=== PATIENT | male | born 1980 | race African-American/Black ===

== ENCOUNTER 2021-07-02 10:26 | Emergency (ER) | payer SELFPAY ==
[2021-07-02] MEDS ORDERED: Azithromycin 250 MG Tab PO ONE (12:04)
[2021-07-02] MEDS ORDERED: cefTRIAXone 250 MG Vial IM ONE (12:04)
[2021-07-02] MEDS ORDERED: Ciprofloxacin 500 MG Tab PO ONE (12:04)
[2021-07-02] MEDS ORDERED: Ondansetron 4 MG Tab.DIS PO ONE (12:18)
[2021-07-05 06:12] LABS: CHLAMYDIA TRACHOMATIS, NAA Positive (Negative); NEISSERIA GONORRHOEAE, NAA Negative (Negative)
== END 2021-07-02 12:50 | disposition home or self-care (01) ==
LOC: FB.ED 10:26
DX: N39.0 Urinary tract infection, site not specified (principal); N45.1 Epididymitis; N41.0 Acute prostatitis; Z88.2 Allergy status to sulfonamides; Z72.0 Tobacco use
CPT/HCPCS: 81001; 87086; 87491; 87591; 96372; 99283; A9270-GY; J0696; Q0162